=== PATIENT | male | born 1955 | race Caucasian/White ===

== ENCOUNTER 2016-10-02 10:13 | Emergency (ER) | payer BC ==
[2016-10-02 11:06] VITALS: BP 114/70
--- NOTE | 2016-10-02 11:47 | UC ---
Skin Complaint HPI - HPI Summary HPI Summary: Stung by yellow jacket yesterday. Pt had initial pain and minimal swelling, then today area has grown to a large, painful, red, itchy, swollen wide oval on abdominal skin. Other stings this summer did not get so big. No trouble breathing, rashes elsewhere, chest, pain, fainting. - History of Current Complaint Chief Complaint: UCAllergicReaction Time Seen by Provider: 10/02/16 11:30 Stated Complaint: BEE STING-AREA SWELLING-ABDOMEN Hx Obtained From: Patient Onset/Duration: Sudden Onset Skin Exposure Onset/Duration: Hours Ago Timing: Constant Onset Severity: Mild Current Severity: Moderate Location: Discrete Character: Pruritus, Redness, Raised Aggravating: Touch Alleviating: Nothing Associated Signs & Symptoms: Positive: Rash Related History: Insect Bite/Sting - Allergy/Home Medications Allergies/Adverse Reactions: Allergies Allergy/AdvReac Type Severity Reaction Status Date / Time No Known Allergies Allergy Verified 10/02/16 11:06 Review of Systems Constitutional: Negative Skin: Rash Eyes: Negative ENT: Negative Respiratory: Negative Cardiovascular: Negative Gastrointestinal: Negative Genitourinary: Negative Motor: Negative Neurovascular: Negative Musculoskeletal: Negative Neurological: Negative Psychological: Negative All Other Systems Reviewed And Are Negative: Yes PMH/Surg Hx/FS Hx/Imm Hx Previously Healthy: Yes - Surgical History Surgical History: Yes Surgery Procedure, Year, and Place: HERNIA x 4. Torn Achilles Tendon Repair - Family History Known Family History: Positive: Hypertension - Social History Occupation: Employed Full-time Alcohol Use: None Substance Use Type: None Smoking Status (MU): Never Smoked Tobacco Physical Exam Triage Information Reviewed: Yes Appearance: Well-Appearing, No Pain Distress, Well-Nourished Vital Signs: Initial Vital Signs Temp 97.9 F 10/02/16 11:02 Pulse 60 10/02/16 11:02 Resp 16 10/02/16 11:02 BP 114/70 10/02/16 11:02 Pulse Ox 99 10/02/16 11:02 Vital Signs Reviewed: Yes Eye Exam: Normal, Other - PERRL Eyes: Positive: Conjunctiva Clear ENT Exam: Normal ENT: Positive: Normal ENT inspection, Hearing grossly normal, Pharynx normal, TMs normal Dental Exam: Normal Neck exam: Normal Neck: Positive: Supple Respiratory Exam: Normal Respiratory: Positive: Chest non-tender, Lungs clear, Normal breath sounds, No respiratory distress, No accessory muscle use Cardiovascular Exam: Normal Cardiovascular: Positive: RRR, No Murmur Abdomen Description: Positive: No Organomegaly, Soft Musculoskeletal Exam: Normal Neurological Exam: Normal Neurological: Positive: Alert Psychological Exam: Normal Skin Exam: Other - wide oval area on abdominal skin across chepe of abdomen, approx 8-12cm tall in different places, warm, skin indurated. No drainage or streaking. Course/Dx - Diagnoses Provider Diagnoses: Insect sting on abdomen, large local reaction Discharge - Discharge Plan Condition: Stable Disposition: HOME Prescriptions: predniSONE TAB* [Deltasone TAB*] 50 mg PO DAILY #5 tab Patient Education Materials: Insect Bite or Sting (ED) Referrals: Tc Villar MD [Primary Care Provider] - Additional Instructions: I expect you to see clear improvement in your pain, itching, redness, and swelling within 1-2 days. If symptoms are worsening despite treatment, or if you are having severe symptoms, please return here or go to the emergency department.
== END 2016-10-02 11:55 | disposition home or self-care (01) ==
LOC: UCEAST 10:13
DX: T63.441A Toxic effect of venom of bees, accidental (unintentional), initial encounter (principal); R22.2 Localized swelling, mass and lump, trunk; Y92.9 Unspecified place or not applicable
CPT/HCPCS: 99212; G0463

== ENCOUNTER 2018-05-14 08:30 | Emergency (ER) | payer BC ==
[2018-05-14 08:46] VITALS: BP 131/73
--- NOTE | 2018-05-14 08:53 | UC ---
Respiratory Complaint HPI - HPI Summary HPI Summary: Healthy healthy 62-year-old male with complaint of a cough for one week that has not gotten better. He also has a sore throat that developed over the past 3 days. His rapid strep was negative. Remainder of the review of systems was noncontributory. Patient denies chest pain or shortness of breath but says that he was helped with a bronchodilator when he has had this condition in the past. 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 His currently has a sore throat. His vital signs are stable. His blood pressure is 131/73. He is not on any antihypertensive medications. MD note: VSS; 131/73; no meds for HTN. Afebrile; 96 pulse ox. Nurse's note:"Patient states he has had a cough x 1 week. He has been coughing up clear phlegm and states his breathing is quite shallow compared to normal. Two days ago he started to have throat pain and it hurts to swallow. Patient also complains he has had difficulty sleeping at night due to the discomfort. He denies fever or chills." - History of Current Complaint Chief Complaint: UCGeneralIllness Stated Complaint: COUGH SORE THROAT Time Seen by Provider: 05/14/18 08:50 Hx Obtained From: Patient Pain Intensity: 8 - Allergies/Home Medications Allergies/Adverse Reactions: Allergies Allergy/AdvReac Type Severity Reaction Status Date / Time No Known Allergies Allergy Verified 05/14/18 08:46 Home Medications: Home Medications NK [No Home Medications Reported] 05/14/18 [History Confirmed 05/14/18] PMH/Surg Hx/FS Hx/Imm Hx - Additional Past Medical History Additional PMH: Past medical history: Patient denies significant illness including any problems with his heart, lungs, liver, kidney. 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 Family history: Positive for cancer. Previously Healthy: Yes - Surgical History Surgical History: Yes Surgery Procedure, Year, and Place: HERNIA x 4. Torn Achilles Tendon Repair - Family History Known Family History: Positive: Hypertension - Social History Alcohol Use: None Substance Use Type: None Smoking Status (MU): Never Smoked Tobacco Review of Systems All Other Systems Reviewed And Are Negative: Yes Respiratory: Positive: Cough - Patient denies chest pain or shortness of breath Cardiovascular: Positive: Negative Gastrointestinal: Positive: Negative Genitourinary: Positive: Negative Is Patient Immunocompromised?: No Physical Exam - Summary Physical Exam Summary: Appearance: The patient is well-appearing, is in no pain or distress, and is well-nourished. Eyes: Conjunctiva are clear. Pupils are equal and reactive to light and accommodation. Extra ocular muscle movement is intact. ENT: The hearing is grossly normal, the pharynx is normal, and the TMs are normal. There is no muffled or hoarse voice. No stridor. Neck: The neck is supple and there is no lymphadenopathy. Respiratory: The chest is nontender to palpation and without crepitus. The lungs are clear, there are normal breath sounds, and there is no respiratory distress. No wheezes, rales. There are a few rhonchi noted and an extended expiratory phase. Cardiovascular: Heart sounds reveal a regular rate and rhythm. There are no clicks, rubs or murmurs. There are no carotid bruits or thrills. Circulation is grossly intact. Abdomen: The abdomen is soft and nontender. There is no organomegaly. Bowel sounds are present and within normal limits. No point tenderness at McBurneys point. Musculoskeletal: Strength is intact. The patient moves all extremities. Neurological: The patient is alert. Motor and sensory are examination grossly intact. Speech is normal. Psychological: The patient displays age appropriate behavior Skin: Negative for rashes. Triage Information Reviewed: Yes Vital Signs: Initial Vital Signs Temp 98 F 05/14/18 08:38 Pulse 60 05/14/18 08:38 Resp 16 05/14/18 08:38 BP 131/73 05/14/18 08:38 Pulse Ox 96 05/14/18 08:38 Vital Signs Reviewed: Yes Respiratory Course/Dx - Course Course Of Treatment: Healthy healthy 62-year-old male with complaint of a cough for one week that has not gotten better. He also has a sore throat that developed over the past 3 days. His rapid strep was negative. Remainder of the review of systems was noncontributory. Patient denies chest pain or shortness of breath but says that he was helped with a bronchodilator when he has had this condition in the past. 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 His currently has a sore throat. His vital signs are stable. His blood pressure is 131/73. He is not on any antihypertensive medication. Patient's physical exam. She was a mildly extended expiratory phase with a few rhonchi. The patient's rapid strep was negative. My diagnosis is bronchitis with bronchospasm. The patient is requesting antibiotics. I encouraged him to hold off on the antibiotics. I will treat this patient with albuterol inhaler and spacer and a Z-Kentrell. He knows to follow up for any increasing shortness of breath, chest pain or fever. - Differential Dx/Diagnosis Differential Diagnosis/HQI/PQRI: Bronchitis, Lower Resp Infection, Sinusitis Provider Diagnosis: Bronchospasm with bronchitis, acute, Pharyngitis Discharge - Sign-Out/Discharge Documenting (check all that apply): Patient Departure All imaging exams completed and their final reports reviewed: No Studies - Discharge Plan Condition: Stable Disposition: HOME Referrals: Tc Villar MD [Primary Care Provider] - Additional Instructions: As we discussed: Your diagnosis is bronchitis with bronchospasm. This means that her lungs are holding onto air and creating her cough. Your treatment is Zithromax antibiotic, albuterol inhaler and spacer. 4. Cough due to puffs 3 or 4 times a day spaced out every 6 hours. Drink lots of fluids, tea and honey, warm water gargles for your throat and use steam and rooming house inspector the shower. Your throat was diagnosed as negative for strep. As we discussed, one of your lipid pressure readings was slightly elevated. Your blood pressure was 131/73. Check this blood pressure again over the next month. Recheck at any time for increased chest pain, shortness of breath or fever. - Billing Disposition and Condition Condition: STABLE Disposition: Home
== END 2018-05-14 09:40 | disposition home or self-care (01) ==
LOC: UCEAST 08:30
DX: J20.9 Acute bronchitis, unspecified (principal); J02.9 Acute pharyngitis, unspecified
CPT/HCPCS: 87651; 99212; G0463